=== PATIENT | male | born 1980 | race African-American/Black ===

== ENCOUNTER 2017-03-22 15:47 | Emergency (ER) | payer SELFPAY ==
--- NOTE | 2017-03-22 16:31 | ER Document Report ---
ED Hand/Wrist Injury - General Chief Complaint: Finger Injury Stated Complaint: LEFT FINGER INJURY Time Seen by Provider: 03/22/17 15:58 Mode of Arrival: Ambulatory Information source: Patient TRAVEL OUTSIDE OF THE [place] IN LAST 30 DAYS: Yes COUNTRY TRAVELED TO/FROM: [place] [facility] Injury to: Index finger Onset: Last week Where: Home Timing: Constant Quality of pain: Achy Severity: Mild Pain Level: 1 Notes: Patient arrives with complaints of left index finger abnormality. He states that he grabbed a towel 5 days ago and since that time is noted to have a mallet finger to the left hand index finger. He denies any significant traumatic injury. No fever. No numbness, tingling, weakness. No nausea, vomiting, diarrhea. No chest pain or shortness of breath. Has minimal pain. He denies any other complaints. - Related Data Allergies/Adverse Reactions: Penicillins Allergy (Verified 06/10/13 07:50) Past Medical History - Social History Smoking Status: Unknown if Ever Smoked Family History: Reviewed & Not Pertinent Patient has suicidal ideation: No Patient has homicidal ideation: No - Past Medical History Cardiac Medical History: Reports: Hx Hypertension Renal/ Medical History: Denies: Hx Peritoneal Dialysis Surgical Hx: Negative - Immunizations Hx Diphtheria, Pertussis, Tetanus Vaccination: Yes Review of Systems - Review of Systems -: Yes All other systems reviewed and negative Physical Exam - Vital signs Vitals: Temp Pulse Resp BP Pulse Ox 98.8 F 78 18 157/85 H 96 03/22/17 15:52 03/22/17 15:52 03/22/17 15:52 03/22/17 15:52 03/22/17 15:52 - Notes Notes: GENERAL: alert, cooperative, nontoxic, no distress. HEAD: normocephalic, atraumatic EYES: conjunctiva pink without discharge, no external redness or swelling. EARS: no external swelling, no external redness NOSE: atraumatic, no external swelling MOUTH/THROAT: mucous membranes moist and pink NECK: soft, supple, full range of motion, no meningismus. CHEST: no distress, lungs clear and equal throughout. No wheezing, rales, rhonchi. CARDIAC: regular rate and rhythm, no murmur, normal capillary refill, normal pulses. BACK: full range of motion, no CVA tenderness. EXTREMITIES: Patient is noted to have an obvious mallet finger deformity to the left index finger. There is no redness. Normal cap refill and sensation distally. He is unable to extend at the distal phalanx. NEURO: alert and oriented 3, no focal deficits, full range of motion of all extremities. PYSCH: appropriate mood, affect. Patient is cooperative. SKIN: pink, warm, dry, no rash. Course - Re-evaluation Re-evalutation: 03/22/17 17:05 Patient is nontoxic appearing with stable vitals. The patient has a mallet deformity to the left index finger after grabbing a towel 5 days ago. X-rays show no acute bony abnormality. The patient was placed in a finger splint in a hyperextended fashion. He was instructed to wear the splint and not remove it until he follows up with Orth [facility]. He will be given Orth [facility] for follow-up. There is no sign of infection. He is neurovascularly intact. The patient is noted to have elevated blood pressure during today's emergency department visit. The patient was informed of this finding. The patient was instructed that this may be related to pre-hypertension and requires further evaluation with a primary care provider. The patient has no hypertensive symptoms at this time. - Vital Signs Vital signs: Temp Pulse Resp BP Pulse Ox 98.8 F 78 18 157/85 H 96 03/22/17 15:52 03/22/17 15:52 03/22/17 15:52 03/22/17 15:52 03/22/17 15:52 - Diagnostic Test Radiology reviewed: Image reviewed, Reports reviewed - Negative left hand Procedures - Additional Procedures Splint placement Additional Procedures: Other - AlumaFoam finger splint applied to the left index finger. Hyper extended position. Joint well aligned. Normal cap refill. Patient tolerated well. Discharge - Discharge Clinical Impression: Mallet deformity of left index finger Condition: Stable Disposition: HOME, SELF-CARE Instructions: Mallet Finger Deformity ([facility]) Additional Instructions: Wear splint until you follow-up with Ortho. Call Saturday to set up an appointment next week. Tylenol or Motrin as needed for pain. Follow-up sooner for increased pain, fever, redness, numbness, tingling, weakness, any further concerns. Your blood pressure was elevated during today's visit. Have this rechecked with your doctor. Forms: Elevated Blood Pressure Referrals: NICOLÁS LE, DO [ACTIVE STAFF] - Follow up as needed
--- NOTE | 2017-03-22 16:43 | RADIOLOGY REPORT (SQ) ---
EXAM DESCRIPTION: HAND LEFT 3 VIEWS COMPLETED DATE/TIME: 03/22/2017 4:35 pm REASON FOR STUDY: left index finger mallet injury COMPARISON: None. EXAM PARAMETERS: NUMBER OF VIEWS: Three views. TECHNIQUE: AP, lateral and oblique radiographic images acquired of the left hand. LIMITATIONS: None. FINDINGS: MINERALIZATION: Normal. BONES: No acute fracture or dislocation. No worrisome bone lesions. JOINTS: No effusions. SOFT TISSUES: No soft tissue swelling. No foreign body. OTHER: No other significant finding. IMPRESSION: NEGATIVE STUDY OF THE LEFT HAND. NO RADIOGRAPHIC EVIDENCE OF ACUTE INJURY. TECHNICAL DOCUMENTATION: JOB ID: [id number] [employer]- All Rights Reserved
[2017-03-22 17:24] VITALS: BP 127/81
== END 2017-03-22 17:17 | disposition home or self-care (01) ==
LOC: ER 15:47
DX: M20.012 Mallet finger of left finger(s) (principal); Z88.0 Allergy status to penicillin; I10 Essential (primary) hypertension
CPT/HCPCS: 99283

== ENCOUNTER 2019-02-06 16:25 | Emergency (ER) | payer BC ==
[2019-02-06 16:30] VITALS: BP 166/91
[2019-02-06] MEDS ORDERED: DEXAMETHASONE SOD PHOS INJ 10 MG/1 ML VIAL IM ONE (16:54)
[2019-02-06] MEDS ORDERED: KETOROLAC TROMETHAMINE 60 MG/2 ML SDV IM ONE (16:54)
--- NOTE | 2019-02-06 16:58 | ER Document Report ---
HPI - HPI Time Seen by Provider: 02/06/19 16:43 Pain Level: 2 Notes: Patient is an otherwise healthy 38-year-old male presented to the emergency department chief complaint of low back pain. He reports pain started yesterday. He denies any direct trauma to the area. Denies any recent fevers. Patient denies any loss of control of his bowels or urinary retention, denies any saddle anesthesia. He does report he has had flareups of low back pain in the past. - CONSTITUTIONAL Constitutional: DENIES: Fever, Chills - EENT EENT: DENIES: Sore Throat, Ear Pain, Eye problems - NEURO Neurology: DENIES: Headache, Weakness, Vision blurred, Dizzinesss / Vertigo - CARDIOVASCULAR Cardiovascular: DENIES: Chest pain - RESPIRATORY Respiratory: DENIES: Trouble Breathing, Coughing - GASTROINTESTINAL Gastrointestinal: DENIES: Abdominal Pain, Black / Bloody Stools - URINARY Urinary: DENIES: Dysuria, Urgency, Frequency - MUSCULOSKELETAL Musculoskeletal: DENIES: Extremity pain Past Medical History - General Information source: Patient - Social History Smoking Status: Never Smoker Chew tobacco use (# tins/day): No Frequency of alcohol use: None Drug Abuse: None Family History: Reviewed & Not Pertinent Patient has suicidal ideation: No Patient has homicidal ideation: No - Past Medical History Cardiac Medical History: Reports: Hx Hypertension Renal/ Medical History: Denies: Hx Peritoneal Dialysis - Immunizations Hx Diphtheria, Pertussis, Tetanus Vaccination: Yes Vertical Provider Document - CONSTITUTIONAL Notes: PHYSICAL EXAMINATION: GENERAL: Well-appearing, well-nourished and in no acute distress. HEAD: Atraumatic, normocephalic. EYES: Pupils equal round extraocular movements intact, conjunctiva are normal. ENT: Nares patent NECK: Normal range of motion LUNGS: No respiratory distress Musculoskeletal: Normal range of motion, tenderness to palpation to right lumbar paraspinous muscles extending into the buttocks, no vertebral tenderness, step- off or deformity. Equal strength to upper and lower extremities bilaterally. NEUROLOGICAL: Normal speech, normal gait. PSYCH: Normal mood, normal affect. SKIN: Warm, Dry, normal turgor, no rashes or lesions noted. - INFECTION CONTROL TRAVEL OUTSIDE OF THE [place] IN LAST 30 DAYS: Yes COUNTRY TRAVELED TO/FROM: [place] Course - Re-evaluation Re-evalutation: Patient has no red flag symptoms for cauda equina or epidural abscess. [place] and history consistent with musculoskeletal strain, patient with likely sciatica. Patient will be started on appropriate medication, he will be medicated here in the emergency department will be discharged home in in stable condition with ED return precautions. Patient verbalizes understanding and agreement with this plan. The patient's emergency department workup and current diagnosis were explained to the patient and or family. Follow-up instructions were provided. Medications if prescribed were discussed. Instructions for when to return to the emergency department including specific worrisome symptoms were discussed with the patient and/or family. - Vital Signs Vital signs: Temp Pulse Resp BP Pulse Ox 97.8 F 73 18 166/91 H 97 02/06/19 16:29 02/06/19 16:29 02/06/19 16:29 02/06/19 16:29 02/06/19 16:29 Discharge - Discharge Clinical Impression: Sciatica Qualifiers: Laterality: right Qualified Code(s): M54.31 - Sciatica, right side Condition: Stable Disposition: HOME, SELF-CARE Additional Instructions: Sciatica Your symptoms suggest "sciatica." The pain of sciatica typically radiates down the leg. Numbness in the foot or calf may also occur. Sciatica is caused by irritation of the sciatic nerve or its branches. The irritation can be due to a herniated disk in the spine, swelling and inflammation in the muscles surrounding the sciatic nerve, or direct injury of the nerve itself. Most cases of sciatica will resolve with medical treatment. Bed rest is usually recommended initially. Surgery is only necessary when the condition will not improve with rest and antiinflammatory medication. Muscle relaxers are often given if muscle soreness is present. A CAT scan of the back may be performed if a herniated disk is suspected. Re-examination is necessary if you develop increasing numbness, localized weakness in the foot or ankle, or if the pain does not respond to rest. Please take the muscle relaxer as prescribed. Please also take ibuprofen 600 mg every 6 hours this will help with not only pain but also inflammation. You may want to consider alternating ice and heat to your low back. Return to the emergency department if you develop weakness in one leg, lose control of your bowels, have urinary retention or develop a fever. Prescriptions: Methocarbamol [Robaxin 750 mg Tablet] 750 mg PO Q4 #40 tablet Forms: Return to Work
== END 2019-02-06 17:08 | disposition home or self-care (01) ==
LOC: ER 16:25
DX: M54.41 Lumbago with sciatica, right side (principal); I10 Essential (primary) hypertension
CPT/HCPCS: 99283; J1885; J1100